=== PATIENT | male | born 1995 | race Caucasian/White ===

== ENCOUNTER 2017-10-11 20:11 | Emergency (ER) | payer BC ==
[2017-10-11 21:30] VITALS: BP 139/72; PULSE 75; TEMP 98.3; BMI 25.0
--- NOTE | 2017-10-11 21:31 | PDOC ---
Rapid Medical Evaluation Chief Complaint: Abscess Boil Time Seen by Provider: 10/11/17 21:29 Medical Evaluation: Allergies Allergy/AdvReac Type Severity Reaction Status Date / Time No Known Allergies Allergy Verified 10/11/17 21:27 10/11/17 21:29 I Have performed a brief in-person evaluation of this patient. c/o right inner thigh abscess and pain. afebrile. pertinent physical exam findings: patient alert ox3, quater sized indurated fluctuant area to right inner thigh with surrounding erythema I have ordered the following: n/a the patient will proceed to the ED for further evaluation.
--- NOTE | 2017-10-11 22:10 | PDOC ---
History of Present Illness - General Chief Complaint: Abscess Boil Stated Complaint: CYST Time Seen by Provider: 10/11/17 21:29 History Source: Patient Exam Limitations: No Limitations - History of Present Illness Initial Comments: 10/11/17 23:12 Pt. is a 22 y/o M with no PMH who presents to the ED with a painful cyst on his R inner thigh. Patient states that he noted the cyst began approximately 2 days ago. He has had cysts like this in the past. He usually uses mupirocin on the cyst to prevent infection. However he states that this one got a bit out of control. He states that it is painful to touch and he feels a bubble when he touches it. Denies fevers, chills, nausea, vomiting, drainage from the site, redness, weakness and fatigue. Past History - Travel Traveled outside of the country in the last 30 days: No Close contact w/someone who was outside of country & ill: No - Past Medical History Allergies/Adverse Reactions: Allergies Allergy/AdvReac Type Severity Reaction Status Date / Time No Known Allergies Allergy Verified 10/11/17 21:27 Home Medications: Ambulatory Orders Cephalexin Monohydrate [Keflex -] 500 mg PO BID #14 capsule 10/11/17 Sulfamethoxazole/Trimethoprim [Bactrim Ds Tablet] 1 each PO BID #14 tablet 10/11 - Suicide/Smoking/Psychosocial Hx Smoking History: Current every day smoker Number of Cigarettes Smoked Daily: 20 Information on smoking cessation initiated: No Hx Alcohol Use: Yes Drug/Substance Use Hx: No Review of Systems - Review of Systems Able to Perform ROS?: Yes Comments:: 10/11/17 23:13 CONSTITUTIONAL: Absent: fever, chills, diaphoresis, generalized weakness, malaise, loss of appetite HEENT: Absent: rhinorrhea, nasal congestion, throat pain, throat swelling, difficulty swallowing, mouth swelling, ear pain, eye pain, visual Changes CARDIOVASCULAR: Absent: chest pain, loss of consciousness, palpitations, irregular heart rate, peripheral edema RESPIRATORY: Absent: cough, shortness of breath, dyspnea with exertion, orthopnea, wheezing, stridor, hemoptysis GASTROINTESTINAL: Absent: abdominal pain, abdominal distension, nausea, vomiting, diarrhea, constipation, melena, hematochezia GENITOURINARY: Absent: dysuria, frequency, urgency, hesitancy, hematuria, flank pain, genital pain MUSCULOSKELETAL: Absent: myalgia, arthralgia, joint swelling SKIN: Present: "cyst"R inner thigh Absent: rash, itching, pallor HEMATOLOGIC/IMMUNOLOGIC: Absent: easy bleeding, easy bruising, lymphadenopathy, frequent infections ENDOCRINE: Absent: unexplained weight gain, unexplained weight loss, heat intolerance, cold intolerance NEUROLOGIC: Absent: headache, focal weakness or paresthesias, dizziness, unsteady gait, seizure, mental status changes, bladder or bowel incontinence PSYCHIATRIC: Absent: anxiety, depression, suicidal or homicidal ideation, hallucinations. Is the patient limited [place] proficient: No *Physical Exam - Vital Signs Last Vital Signs Temp Pulse Resp BP Pulse Ox 98.3 F 75 14 139/72 99 10/11/17 21:28 10/11/17 21:28 10/11/17 21:28 10/11/17 21:28 10/11/17 21:28 - Physical Exam Comments: 10/11/17 23:14 GENERAL: The patient is awake, alert, and fully oriented, in no acute distress. HEAD: Normal with no signs of trauma. EYES: Pupils equal, round and reactive to light, extraocular movements intact, sclera anicteric, conjunctiva clear. EXTREMITIES: Normal range of motion, no edema. NEUROLOGICAL: Normal speech, normal gait. PSYCH: Normal mood, normal affect. SKIN: 4cm x4cm fluctant area within [id number] of induration on the superior R inner thigh. No drainage from the site. Warm, Dry, normal turgor, no rashes noted. Procedures - Incision and Drainage I&D Site: Right: Leg (superior inner thigh) Betadine cleansed: Yes Anesthesia: 1% Lidocaine Volume(ml): 5 Blade Size: 11 Attempts: 1 Iodinated Packin/4 in Medical Decision Making - Medical Decision Making 10/11/17 23:20 Patient is a 22-year-old male with no past medical history who presents to the ER today complaining of an abscess to his right inner thigh. Informed consent was obtained and patient agreed to incision and drainage. The area was prepared under sterile procedure. The area was then anesthetized with 5 mL of 1% plain lidocaine. An 11 blade was used to incise the abscess. A large clot with some pus was evacuated. Packing was placed and a dressing was placed over the area. Wound culture was obtained and patient was started on antibiotics. Patient told to follow-up in 2 days for wound check and have his packing removed. *DC/Admit/Observation/Transfer Diagnosis at time of Disposition: Abscess - Discharge Dispostion Disposition: HOME Condition at time of disposition: Good Admit: No - Prescriptions Prescriptions: Cephalexin Monohydrate [Keflex -] 500 mg PO BID #14 capsule Sulfamethoxazole/Trimethoprim [Bactrim Ds Tablet] 1 each PO BID #14 tablet - Referrals Referrals: Lulu Rey [Primary Care Provider] - - Patient Instructions Printed Discharge Instructions: DI for Incision and Drainage of a Skin Abscess Additional Instructions: You had your abscess drained today. Packing was placed to keep the area open. Do not put ointment over the packing. Please follow up in two days to have the wound checked. You were prescribed antibiotics. Please take them as directed. You may take tylenol or motrin as needed for pain. Return to the ED if you have worsening pain, fevers, chills, foul smelling drainage, increasing redness or any changes in your symptoms - Post Discharge Activity Forms/Work/School Notes: Back to Work
== END 2017-10-11 22:59 | disposition home or self-care (01) ==
LOC: JERFT 20:11
PROC: 0J9L0ZZ Drainage of Right Upper Leg Subcutaneous Tissue and Fascia, Open Approach (ICD-10-PCS; principal; 2017-10-11)
DX: L02.415 Cutaneous abscess of right lower limb (principal)
CPT/HCPCS: 87070; 87205; 99281-25